=== PATIENT | male | born 1935 | race African-American/Black ===

== ENCOUNTER 2018-12-06 11:06 | Emergency (ER) | payer MEDICARE ==
[~2018-12-06] VITALS: Ht 175.3 cm; Wt 77.3 kg
[2018-12-06 11:16] VITALS: BP 193/82; Ht 175.3 cm; Wt 77.3 kg
[2018-12-06] MEDS ORDERED: MEDROL DOSE PACK4 MG PO (11:41)
[2018-12-06] MEDS ORDERED: BENADRYL50 MG PO (11:41)
== END 2018-12-06 12:26 | disposition home or self-care (01) ==
LOC: D.ER 11:06
DX: L29.9 Pruritus, unspecified (principal); R45.5 Hostility